=== PATIENT | female | born 1960 | race Caucasian/White ===

== ENCOUNTER → 2017-02-02 | Outpatient (CLI) | payer OTHER | LOC: RAD 17:02 | DX: M86.8X6 Other osteomyelitis, lower leg (principal) ==

== ENCOUNTER 2021-09-20 03:43 | Emergency (ER) | payer OTHER ==
--- NOTE | 2021-09-20 07:31 | EKG ---
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 : 1960 Requested By: Marija Messer Order Number: [id number] MD: Hardik Pickett Measurements Intervals [place] Rate: 81 P: 63 NC: 134 QRS: 57 QRSD: 98 T: -8 QT: 374 QTc: 434 Interpretive Statements Sinus rhythm RSR' in V1 or V2, probably normal variant Nonspecific T abnormalities, anterior leads Baseline wander in lead(s) V1 No previous ECG available for comparison Electronically Signed On 09-20-2021 7:31:01 MAMMOGRAPHER by Hardik Pickett [email or web address] <ELECTRONICALLY SIGNED> By: Hardik Pickett MD, [facility] 09/20/21 [id number] [id number] Hardik Pickett MD, FACC /EPI
== END 2021-09-20 04:54 | disposition home or self-care (01) ==
LOC: ER 03:43
PROVIDERS: Emergency Medicine
DX: U07.1 COVID-19 (principal); R07.89 Other chest pain; Z98.890 Other specified postprocedural states